=== PATIENT | female | born 1970 | race Caucasian/White ===

== ENCOUNTER → 2024-07-08 10:48 | Outpatient (BNVA) | payer OTHER, SELFPAY | PROVIDERS: PCP Family Medicine; Referring Provider Physician Assistant; Visit Provider Internal Medicine | DX: R07.9 Chest pain, unspecified (principal); I49.8 Other specified cardiac arrhythmias | CPT/HCPCS: 93005 ==

== ENCOUNTER 2024-07-30 05:57 | Outpatient (CLI) | payer OTHER, SELFPAY ==
--- NOTE | 2024-07-30 06:15 | USCV_ITS ---
Clotilde Barriga Age: 53 Gender: F : 1970 Exam Date: 07/30/2024 06:26 Ordering Phys: Milo Mancuso M.D ([email or web address]) Technologist: Steve Cai Exam Location: [place] Indication: sob BP: 166 / 90 HR: 64 Rhythm: Sinus Technical Quality: Adequate MEASUREMENTS (Male / Female) Normal Values 2D ECHO LV Diastolic Diameter PLAX 5.1 cm 4.2 - 5.9 / 3.9 - 5.3 cm IVS Diastolic Thickness 1.0 cm 0.6 - 1.0 / 0.6 - 0.9 cm IVS Systolic Thickness 1.5 cm LVPW Diastolic Thickness 1.1 cm 0.6 - 1.0 / 0.6 - 0.9 cm LVPW Systolic Thickness 2.1 cm LVOT Diameter 2.0 cm LV Ejection Fraction 2D Teich 69.0 % LV Ejection Fraction MOD 4C 76.8 % LV Ejection Fraction MOD 2C 66.3 % LV Ejection Fraction 2C AL 66.7 % LA Diameter 3.2 cm RA Systolic Volume 4C AL 27.0 ml RA Systolic Volume 4C MOD 26.0 ml LA Sys Volume AL 29.1 cm cubed LA Sys Volume Index AL 15.1 cm cubed/m squared Aorta at Sinotubular Diameter 2.4 cm IVC Diameter 1.4 cm M-MODE LA Ao Ratio MM 1.3 AV Cusp Separation MM 2.0 cm DOPPLER AV Peak Velocity 137.0 cm/s LVOT Peak Velocity 124.0 cm/s AV Area Cont Eq vti 2.4 cm squared AV Area Cont Eq pk 2.8 cm squared MV Peak Velocity 99.0 cm/s MV Area PHT 4.9 cm squared Mitral E to A Ratio 0.8 TV Peak Velocity 154.0 cm/s TR Peak Velocity 218.0 cm/s TR Peak Gradient 19.0 mmHg TR Mean Velocity 171.0 cm/s TR Mean Gradient 12.7 mmHg TR Velocity Time Integral 59.2 cm PV Peak Velocity 81.0 cm/s RV Ejection Time 0.3 s FINDINGS Left Ventricle Left ventricle is normal in size. LV systolic function is normal with EF 55 to 60%. No regional wall motion abnormalities are seen. Grade 1 diastolic dysfunction Right Ventricle Normal in size and function Right Atrium Normal in size Left Atrium Normal in size Mitral Valve Structurally normal mitral valve. Mild mitral regurgitation. Aortic Valve Structurally normal aortic valve. No significant stenosis or regurgitation. Tricuspid Valve Insufficient TR jet to calculate RVSP Pulmonic Valve Not well visualized Pericardium Normal Aorta Normal in size IVC Appears to be normal CONCLUSIONS LV systolic function is normal with EF of 55-60% Grade 1 diastolic dysfunction Mild mitral regurgitation No comparison studies are available. Milo Mancuso MD (Electronically Signed) Final Date: 06 August 2024 14:09 S
== END 2024-07-30 05:58 | disposition home or self-care (01) ==
LOC: RAD 05:59
PROVIDERS: PCP Physician Assistant; Visit Provider Internal Medicine
DX: I50.30 Unspecified diastolic (congestive) heart failure (principal); R06.02 Shortness of breath
CPT/HCPCS: 93306